=== PATIENT | male | born 1945 | race Caucasian/White ===

== ENCOUNTER 2025-08-15 15:58 | Emergency (ER) | payer MEDICARE, BC, SELFPAY ==
[2025-08-15 16:14] VITALS: BP 165/90; PULSE 95; RESP 16; TEMP 36.3; O2SAT 96; BMI 31.9
--- NOTE | 2025-08-15 16:27 | CRLHL7_ITS ---
For Patients: As a result of the Century Cures Act, medical imaging exams and procedure reports are released immediately into your electronic medical record. You may view this report before your referring provider. If you have questions, please contact your health care provider. INDICATION: Fall on stairs today, evaluate for rib fracture TECHNIQUE: CT chest without contrast. COMPARISON: Same day rib and thoracic spine radiographs. FINDINGS: Lungs and pleura: There are multiple solid noncalcified pulmonary nodules, including a 3 millimeter nodule in the right middle lobe (series 3, image 53). There is bilateral subpleural reticulation. No pleural effusion or pneumothorax. Heart and vasculature: Heart size is normal. Thoracic aorta and pulmonary artery are normal in caliber. Mitral annular and aortic valvular calcifications. Trace coronary artery and mild aortic atherosclerotic calcification. Lymph nodes/mediastinum: No mediastinal, hilar, or axillary adenopathy. Chest wall: Mild bilateral gynecomastia Upper abdomen: Bilateral probable renal cortical cysts. Cholelithiasis without findings to suggest acute cholecystitis. Mild central mesenteric fat stranding. Bones: There are subtle acute, nondisplaced fractures of the right posterior 12th, 11th, and 10th ribs best seen on coronal images (series 4, image 87, 85, and 83). There is mild anterior height loss of the T8 vertebral body without evident fracture line, likely chronic. Multilevel Schmorl`s nodes are present. IMPRESSION: 1. Acute, nondisplaced fractures of the right posterior 10th, 11th, and 12th ribs. No pneumothorax or pleural effusion. 2. Chronic appearing mild height loss of the T8 vertebral body without evident fracture line. Please note that all CT scans at this facility use dose modulation, iterative reconstruction, and/or weight-based dosing when appropriate to reduce radiation dose to as low as reasonably achievable. Dictated by Iris Carter MD @ 08/15/2025 5:05:05 PM (Electronically Signed)
--- NOTE | 2025-08-15 16:40 | ED.GENADULT ---
HPI - General Adult General Chief complaint: Back Injury/Pain Stated complaint: Rib fracture from fall Time Seen by Provider: 08/15/25 16:04 Source: patient Mode of arrival: ambulatory Limitations: no limitations History of Present Illness HPI narrative: 80-year-old male presenting today with right sided back pain. Patient states that he fell 6 days ago and has been having pain over the right mid back since. He has been seeing the chiropractor, pain has been getting worse instead of better. He takes ibuprofen which helps some. He is not short of breath. No coughing. He denies any central back pain. He denies any difficulty with bowel movements or urination. He denies any fevers or chills. No nausea or vomiting. Patient was seen earlier today in the urgent care where he had x-rays of the ribs, thoracic spine and chest done. No rib fractures are seen, chest x-ray was unremarkable. However thoracic x-ray showed a age indeterminate endplate T8 compression fracture. Patient was sent to the ER for further management. Related Data Home Medications ?Medication ?Instructions ?Recorded ?Confirmed No Known Home Medications 08/15/25 08/15/25 Allergies Allergy/AdvReac Type Severity Reaction Status Date / Time No Known Drug Allergies Allergy Verified 08/15/25 14:17 Review of Systems Status of ROS: Reports: 10 or more systems reviewed and unremarkable except as noted in History and below Exam Narrative: Exam Narrative: Well-nourished well-developed patient in no acute distress. Alert and oriented. Answers questions appropriately. Mood and affect are appropriate. Thoughts are goal oriented and rational. No tangential or magical thinking noted. Patient speaks in full sentences without needing to catch his breath. HEENT: Normocephalic atraumatic. Pupils are equally round reactive to light. Extraocular muscles are intact. Conjunctivae are moist without any icterus noted. Moist mucous membranes. Lungs are clear auscultation bilaterally. Patient has mild discomfort with deep inspiration. Back: Patient has bruising over the right mid back with tenderness present. He has no tenderness over the cervical, thoracic, lumbar spine. Full range of motion at the neck without discomfort. Const: Vital Signs, click to edit/add: Vital Signs - 24 hr 08/15/25 16:14 Temperature 97.4 F L Pulse Rate [Pulse Oximeter] 95 Respiratory Rate 16 Blood Pressure [Ri ght Upper Arm] 165/90 H Pulse Oximetry 96 Oxygen Delivery Me thod Room Air Course Course ED Course: X-rays from the urgent care were reviewed. Given the amount of pain and bruising present we did proceed with chest CT. Given his lack of discomfort over the thoracic spine I believe the compression fractures not acute. CT shows posterior nondisplaced fractures of ribs 10, 11 and 12. Discussed results with the patient. Recommended stronger pain medications as needed. Patient is in agreement. We discussed potential side effects and reasons for follow-up. Vital Signs Vital signs: Initial Vital Signs Temperature 97.4 F L 08/15/25 16:14 Temperature Source Temporal Artery Scan 08/15/25 16:14 Pulse Rate 95 08/15/25 16:14 Respiratory Rate 16 08/15/25 16:14 Blood Pressure 165/90 H 08/15/25 16:14 Blood Pressure Mean 115 H 08/15/25 16:14 Blood Pressure Position Sitting 08/15/25 16:14 Pulse Oximetry 96 08/15/25 16:14 Oxygen Delivery Method Room Air 08/15/25 16:14 Vital Signs Temperature 97.4 F L 08/15/25 16:14 Pulse Rate 95 08/15/25 16:14 Respiratory Rate 16 08/15/25 16:14 Blood Pressure 165/90 H 08/15/25 16:14 Pulse Oximetry 96 08/15/25 16:14 Oxygen Delivery Method Room Air 08/15/25 16:14 Temperature 97.4 F L 08/15/25 16:14 Pulse Rate 95 08/15/25 16:14 Respiratory Rate 16 08/15/25 16:14 Blood Pressure 165/90 H 08/15/25 16:14 Pulse Oximetry 96 08/15/25 16:14 Oxygen Delivery Method Room Air 08/15/25 16:14 Medical Decision Making MDM Narrative Medical decision making narrative: 80-year-old male status post fall 6 days ago with 3 rib fractures. No shortness of breath. Treatment per above. Imaging Data CT scan - chest: Attestation: I have reviewed the pertinent imaging results. Radiologist's impression: TECHNIQUE: CT chest without contrast. COMPARISON: Same day rib and thoracic spine radiographs. FINDINGS: Lungs and pleura: There are multiple solid noncalcified pulmonary nodules, including a 3 millimeter nodule in the right middle lobe (series 3, image 53). There is bilateral subpleural reticulation. No pleural effusion or pneumothorax. Heart and vasculature: Heart size is normal. Thoracic aorta and pulmonary artery are normal in caliber. Mitral annular and aortic valvular calcifications. Trace coronary artery and mild aortic atherosclerotic calcification. Lymph nodes/mediastinum: No mediastinal, hilar, or axillary adenopathy. Chest wall: Mild bilateral gynecomastia Upper abdomen: Bilateral probable renal cortical cysts. Cholelithiasis without findings to suggest acute cholecystitis. Mild central mesenteric fat stranding. Bones: There are subtle acute, nondisplaced fractures of the right posterior 12th, 11th, and 10th ribs best seen on coronal images (series 4, image 87, 85, and 83). There is mild anterior height loss of the T8 vertebral body without evident fracture line, likely chronic. Multilevel Schmorl`s nodes are present. IMPRESSION: 1. Acute, nondisplaced fractures of the right posterior 10th, 11th, and 12th ribs. No pneumothorax or pleural effusion. 2. Chronic appearing mild height loss of the T8 vertebral body without evident fracture line. Please note that all CT scans at this facility use dose modulation, iterative reconstruction, and/or weight-based dosing when appropriate to reduce radiation dose to as low as reasonably achievable. Dictated by Iris Carter MD @ 08/15/2025 5:05:05 PM Discharge Plan Discharge Clinical Impression: Fracture, ribs Patient Disposition: Home, Self-Care Condition: Stable Instructions: Rib Fracture (ED) Additional Instructions: Take pain medications as needed. These medications can cause dizziness and increase your risk of fall- so take with caution. They can also cause constipation. Recommend daily MiraLax while you are taking these medications. Activity as tolerated. Recommend that you practice deep breathing multiple times throughout the day as we discussed, to prevent pneumonia. Follow-up with your primary care provider in 5-7 days. Ten tablets of [place] sent to [facility]. Prescriptions: No Action No Known Home Medications Follow Up/Referrals: Provider,Not a Local [Primary Care Provider, Family Practice] Stand Alone Forms: [facility] Info Instructions
== END 2025-08-15 17:35 | disposition home or self-care (01) ==
PROVIDERS: Emergency Provider Family Medicine
DX: S22.41XA Multiple fractures of ribs, right side, initial encounter for closed fracture (principal); W19.XXXA Unspecified fall, initial encounter
CPT/HCPCS: 71250; 99284